=== PATIENT | female | born 1995 | race Caucasian/White ===

== ENCOUNTER 2016-11-13 16:13 | Emergency (ER) | payer OTHER ==
[~2016-11-13] VITALS: Ht 160 cm; Wt 74.8 kg
[~2016-11-13 16:13] MED LIST: AMOX500C3 PO
[2016-11-13 16:16] VITALS: TEMP 37.2; Ht 160 cm; Wt 74.8 kg
[2016-11-13 16:21] VITALS: O2SAT 99
[2016-11-13] MEDS ORDERED: SODIUM CHLORIDE 0.9% 1000ML 2,000 ML IV STA (16:35)
[2016-11-13 17:04] LABS: BASO % 0.1 %; BASO ABS # 0.01 K/uL (0-0.2); COMPLETE YES; EOS % 0.6 %; HEMATOCRIT 44.2 % (37-47); IG% 0.3 %; LYMPH % 9.2 %; LYMPH ABS # 1.48 K/uL (1.2-3.4); MEAN CELL VOLUME 92.5 fL (80-100); MEAN CORPUSCULAR HEMOGLOBIN 32.4 pg (25-34); MEAN CORPUSCULAR HGB CONC 35.1 g/dl (32-36); MEAN PLATELET VOLUME 9.8 fL (7.4-10.4); NEUT % 83.8 %; PLATELET COUNT 205 K/uL (130-400); RED BLOOD COUNT 4.78 M/uL (4.2-5.4); WHITE BLOOD COUNT 16.08 K/uL (4.8-10.8)
[2016-11-13 17:26] LABS: ALT/SGPT 19 U/L (12-78); AST/SGOT 11 U/L (15-37); BLOOD UREA NITROGEN 10 mg/dl (7-18); BUN/CREATININE RATIO 18.8 (10-20); CALCIUM 7.6 mg/dl (8.5-10.1); CARBON DIOXIDE 22 mmol/L (21-32); CHLORIDE 110 mmol/L (98-107); CREATININE 0.52 mg/dl (0.60-1.20); GLUCOSE 77 mg/dl (70-99); MAGNESIUM 1.7 mg/dl (1.8-2.4); POTASSIUM 3.5 mmol/L (3.5-5.1); SODIUM 142 mmol/L (136-145)
[2016-11-13 17:36] LABS: PREG INTERNAL NEGATIVE QC NEG CLEAR BACKGROUND; PREG INTERNAL POSITIVE QC POS CONTROL LINE
[2016-11-13 17:37] LABS: ALKALINE PHOSPHATASE 63 U/L (45-117)
[2016-11-13 18:36] LABS: URINE APPEARANCE CLOUDY (CLEAR); URINE BILIRUBIN NEG (NEG); URINE COLOR YELLOW; URINE EPITHELIAL CELL AUTO >30 /lpf (0-5); URINE NITRITE POS (NEG); URINE SPECIFIC GRAVITY 1.023 (1.000-1.030); UROBILINOGEN NEG (NEG)
[2016-11-13 18:45] LABS: MANUAL MICROSCOPIC REQUIRED? NO; REVIEW REQ? YES
[2016-11-13] MEDS ORDERED: CEFTRIAXONE SOD INJ 1 GM ADDVIAL IV STA (19:04)
[2016-11-13] MEDS ORDERED: SULF800T23 PO (19:36)
--- NOTE | 2016-11-13 19:37 | EMERGENCY ROOM VISIT NOTE ---
History Report prepared by Jose: Danielle Johnson Under the Supervision of: Dr. Georgi Lockwood M.D. First contact with patient: 16:15 Chief Complaint: SYNCOPE Stated Complaint: SYNCOPE History of Present Illness The patient is a 21 year old female who presents to the Emergency Room with complaints of a syncopal episode that occurred this afternoon. Per EMS, the patient donated plasma at [facility] this afternoon. Afterwards, she got in her car to drive home and smoked a cigarette. A few minutes after she finished her cigarette when she was driving, she became lightheaded. She asked her to drive at that time. While in the passenger seat, she became unresponsive, her arms contracted inward, and she was incontinent of urine. Upon EMS arrival, the patient was not responsive. When she came to, she complained of tingling in her fingers and toes. Her systolic blood pressure was between 80 and 100. The patient notes that she was feeling well prior to donating plasma and has never had any problems donating in the past. She has not eaten anything since about 0830 this morning. She has been feeling well over the past few days. Pt denies headache, fevers, chills, diaphoresis, visual changes, neck pain, chest pain, breathing difficulties, nausea, vomiting, abdominal pain, back pain, melena, hematochezia, weakness, lymphadenopathy, rash, or other complaints. Source of History: patient, EMS Onset: this afternoon Position: other (global) Quality: other (syncope) Timing: other (episode) Associated Symptoms: + LOC, + urinary symptoms (incontinence) Note: Other symptoms: tingling to fingers and toes Review of Systems See HPI for pertinent positives and negatives. A total of ten systems were reviewed and were otherwise negative. Past Medical & Surgical Medical Problems: (1) Back pain affecting (2) Cramping affecting , antepartum (3) Decreased movement during in third trimester, antepartum (4) Esophagitis Nos (5) Headache in , antepartum (6) Hx-Mental Disorder Nec (7) Hypopotassemia (8) Irregular contractions (9) with 35 completed weeks gestation (10) with 38 completed weeks gestation (11) with 39 completed weeks gestation (12) pain Family History FH: HTN (hypertension) FH: cancer FH: lung disease FHx: diabetes mellitus Social History Smoking Status: Current Every Day Smoker Drug Use: none Marital Status: single Occupation Status: employed Current/Historical Medications Scheduled Sulfa/Trimethoprim (Bactrim Ds 800MG/160MG), 1 TAB PO BID Allergies Coded Allergies: Oxycodone (Verified Allergy, Intermediate, GI UPSET, RASH, 11/13/16) Physical Exam Vital Signs Date Time Temp Pulse Resp B/P Pulse Ox O2 Delivery O2 Flow Rate FiO2 11/13/16 20:00 83 18 108/66 98 Room Air 11/13/16 17:52 88 18 110/64 11/13/16 17:05 90 11/13/16 16:21 99 Room Air 11/13/16 16:16 37.2 100 18 122/80 99 Room Air Physical Exam GENERAL: Awake, alert, well-appearing, in no distress HENT: Normocephalic, atraumatic. Oropharynx unremarkable. EYES: Normal conjunctiva. Sclera non-icteric. NECK: Supple. No nuchal rigidity. FROM. No JVD. RESPIRATORY: Clear to auscultation. CARDIAC: Regular rate, normal rhythm. Extremities warm and well perfused. Pulses equal. ABDOMEN: Soft, non-distended. No tenderness to palpation. No rebound or guarding. No masses. RECTAL: Deferred. MUSCULOSKELETAL: Chest examination reveals no tenderness. The back is symmetrical on inspection without obvious abnormality. There is no CVA tenderness to palpation. No joint edema. LOWER EXTREMITIES: Calves are equal size bilaterally and non-tender. No edema. No discoloration. NEURO: Normal sensorium. No sensory or motor deficits noted. SKIN: No rash or jaundice noted. Medical Decision & Procedures Laboratory Results 11/13/16 16:55 Red Blood Count 4.78, Mean Corpuscular Volume 92.5, Mean Corpuscular Hemoglobin 32.4, Mean Corpuscular Hemoglobin Concent 35.1, Mean Platelet Volume 9.8, Neutrophils (%) (Auto) 83.8, Lymphocytes (%) (Auto) 9.2, Monocytes (%) (Auto) 6.0, Eosinophils (%) (Auto) 0.6, Basophils (%) (Auto) 0.1, Neutrophils # (Auto) 13.49, Lymphocytes # (Auto) 1.48, Monocytes # (Auto) 0.96, Eosinophils # (Auto) 0.09, Basophils # (Auto) 0.01 11/13/16 16:55 Test 11/13/16 16:55 11/13/16 18:10 White Blood Count 16.08 K/uL (4.8-10.8) Red Blood Count 4.78 M/uL (4.2-5.4) Hemoglobin 15.5 g/dL (12.0-16.0) Hematocrit 44.2 % (37-47) Mean Corpuscular Volume 92.5 fL (80-100) Mean Corpuscular Hemoglobin 32.4 pg (25-34) Mean Corpuscular Hemoglobin Concent 35.1 g/dl (32-36) Platelet Count 205 K/uL (130-400) Mean Platelet Volume 9.8 fL (7.4-10.4) Neutrophils (%) (Auto) 83.8 % Lymphocytes (%) (Auto) 9.2 % Monocytes (%) (Auto) 6.0 % Eosinophils (%) (Auto) 0.6 % Basophils (%) (Auto) 0.1 % Neutrophils # (Auto) 13.49 K/uL (1.4-6.5) Lymphocytes # (Auto) 1.48 K/uL (1.2-3.4) Monocytes # (Auto) 0.96 K/uL (0.11-0.59) Eosinophils # (Auto) 0.09 K/uL (0-0.5) Basophils # (Auto) 0.01 K/uL (0-0.2) RDW Standard Deviation 42.8 fL (36.4-46.3) RDW Coefficient of Variation 12.7 % (11.5-14.5) Immature Granulocyte % (Auto) 0.3 % Immature Granulocyte # (Auto) 0.05 K/uL (0.00-0.02) Anion Gap 10.0 mmol/L (3-11) Est Creatinine Clear Calc Drug Dose 167.1 ml/min Estimated GFR () > 150.0 Estimated GFR (Non- 137.5 BUN/Creatinine Ratio 18.8 (10-20) Calcium Level 7.6 mg/dl (8.5-10.1) Magnesium Level 1.7 mg/dl (1.8-2.4) Total Bilirubin 0.6 mg/dl (0.2-1) Direct Bilirubin 0.1 mg/dl (0-0.2) Aspartate Amino Transf (AST/SGOT) 11 U/L (15-37) Alanine Aminotransferase (ALT/SGPT) 19 U/L (12-78) Alkaline Phosphatase 63 U/L (45-117) Total Protein 5.5 gm/dl (6.4-8.2) Albumin 3.3 gm/dl (3.4-5.0) Thyroid Stimulating Hormone (TSH) 1.050 uIu/ml (0.300-4.500) Human Chorionic Gonadotropin, Qual NEG (NEG) Urine Color YELLOW Urine Appearance CLOUDY (CLEAR) Urine pH 7.0 (4.5-7.5) Urine Specific [place] 1.023 (1.000-1.030) Urine Protein TRACE (NEG) Urine Glucose (UA) NEG (NEG) Urine Ketones 3+ (NEG) Urine Occult Blood NEG (NEG) Urine Nitrite POS (NEG) Urine Bilirubin NEG (NEG) Urine Urobilinogen NEG (NEG) Urine Leukocyte Esterase MODERATE (NEG) Urine WBC (Auto) >30 /hpf (0-5) Urine RBC (Auto) 10-30 /hpf (0-4) Urine Hyaline Casts (Auto) >30 /lpf (0-5) Urine Epithelial Cells (Auto) >30 /lpf (0-5) Urine Bacteria (Auto) 4+ (NEG) Laboratory results reviewed by me Medications Administered Medications (Trade) Dose Ordered Sig/[place] Route Start Time Stop Time Status Last Admin Dose Admin Sodium Chloride (Nss 1000ml) 2,000 ml @ 999 mls/hr Q2H1M STAT IV 11/13/16 16:35 11/13/16 18:35 DC 11/13/16 16:35 999 MLS/HR Ceftriaxone Sodium (Rocephin Inj) 1 gm NOW STAT IV 11/13/16 19:04 11/13/16 19:08 DC 11/13/16 19:14 1 GM ECG Indication: syncope Rate (beats per minute): 92 Rhythm: normal sinus Findings: no acute ischemic change, no ectopy ED Course 161: The patient was evaluated in room B3. A complete history and physical exam was performed. 1635: Ordered NSS 2000 ml @ 999 mls/hr IV. 181: I reassessed the patient. She was feeling better. 1904: I reevaluated the patient. Discussed results and discharge instructions: She verbalized understanding and agreement. The patient is ready for discharge. Ordered Rocephin Inj 1 gm IV. Medical Decision Triage Nursing notes reviewed and agree them. Additional history obtained from the tinter photograph. The patient's history was concerning for syncope. Differential diagnosis: Etiologies such as infection, hypoglycemia, electrolyte abnormalities, cardiac sources, intracerebral event, toxicologic, neurologic, as well as others were entertained. Physical examination: As above. Normal. ER treatment provided: IV hydration with normal saline On reassessment the patient felt normal. IV Rocephin Diagnostics interpretation by me: ECG: Normal sinus rhythm The labs revealed a mild leukocytosis. Chemistry panel is unremarkable. LFTs were unremarkable as was TSH. The patient's urinalysis was concerning for infection. Mild low calcium and magnesium. Imaging studies: Deferred The patient had a syncopal episode after donating plasma, not eating, and smoking afterwards. She felt the symptoms coming on and then had the episode. She also noted some foul-smelling urine and has a UTI. She was treated. She will be placed on Bactrim. She was counseled. If she worsens in any way she will come back.I gave my usual and customary discussion regarding this issue. By the evaluation outlined above emergent etiologies such as sepsis, hypoglycemia, electrolyte abnormalities, cardiac sources, intracerebral event, toxicologic, neurologic,as well as others were deemed relatively unlikely. The patient was informed about the findings as listed above. All questions were answered and she was pleased with the treatment. Return instructions were outlined and the patient was discharged in stable condition. Outpatient prescription management: Bactrim Referral: The patient was referred back to her primary care physician for follow-up next week for a recheck of the current condition. The chart was completed utilizing [employer] Speech voice recognition software. Grammatical errors, random word insertions, pronoun errors, and incomplete sentences are an occasional consequence of this system due to software limitations, ambient noise, and hardware issues. Any formal questions or concerns about the content, text, or information contained within the body of this dictation should be directly addressed to the physician for clarification. Impression Primary Impression: Syncope Additional Impression: UTI (urinary tract infection) Scribe Attestation The scribe's documentation has been prepared under my direction and personally reviewed by me in its entirety. I confirm that the note above accurately reflects all work, treatment, procedures, and medical decision making performed by me. Departure Information Dispostion Home / Self-Care Prescriptions Sulfa/Trimethoprim (Bactrim Ds 800MG/160MG) Tab 1 TAB PO BID, #14 TAB Prov: Georgi Lockwood MD 11/13/16 Referrals No Doctor, Assigned (PCP) Patient Instructions [facility] Additional Instructions SYNCOPE (PASSING OUT) INSTRUCTIONS: Diagnosis #1 syncope diagnosis #2 UTI Trimethoprim-Sulfamethoxazole(Bactrim DS): Take one pill twice daily for 7 days for your urine infection. All antibiotics can cause diarrhea. If this occurs and you feel worse or it does not resolve in 1-2 days follow up with your doctor or return to the Emergency Department as this could be signs of serious underlying problems. Any medication can cause an allergic reaction, stop the pills immediately and return to the ER for rash, hives, breathing difficulties, or swelling. Refrain from plasma donation for the next 2 months. Do not donate blood or plasma without having a full meal beforehand. Rest and drink plenty of fluids after donating plasma. Stop smoking. Ibuprofen(Motrin, Advil) may be used for fever or pain. Use 600mg every six hours as needed. Take with food. Avoid using more than 2400mg in a 24 hour period. Do not use 2400mg per day for more than three consecutive days without physician direction. Prolonged inappropriate use can lead to stomach upset or ulcers. (AND/OR) Acetaminophen(Tylenol) may be used for fever or pain. Use 1000mg every six hours as needed. Avoid using more than 4000mg in a 24 hour period. Rest and drink plenty of fluids as tolerated. Continue current medications. Return to the ER for passing out, chest pain, headache, persistent vomiting, fevers, abdominal pain, chest pains, difficulty breathing, black or bloody stools, worsening of your condition, or as needed. Follow up with your primary physician in 2-3 days for a recheck of your current condition Problem Qualifiers
[2016-11-13 20:00] VITALS: BP 108/66; PULSE 83; O2SAT 98
== END 2016-11-13 20:18 | disposition home or self-care (01) ==
LOC: EDBD 16:13 → C.EDB 16:15
DX: R55 Syncope and collapse (principal); N39.0 Urinary tract infection, site not specified; F17.210 Nicotine dependence, cigarettes, uncomplicated; Z86.59 Personal history of other mental and behavioral disorders; Z82.49 Family history of ischemic heart disease and other diseases of the circulatory system; Z83.3 Family history of diabetes mellitus

== ENCOUNTER 2019-02-04 07:28 | Inpatient (IN) ==
[2019-02-04] MEDS ORDERED: OXYTOCIN 30 UNITS/500 ML BAG IV PRN ×3 (07:35→16:13)
[2019-02-04 07:50] LABS: Hematocrit (blood only) 31.5 % (37-47); Hemoglobin 10.7 g/dL (12.0-16.0); Mean Corpuscular Volume 91.6 fL (80-100); Mean Platelet Volume 9.3 fL (7.4-10.4); Platelet Count 224 K/uL (130-400); RDW Coefficient of Variation 13.9 % (11.5-14.5); RDW Standard Deviation 45.8 fL (36.4-46.3); Red Blood Count 3.44 M/uL (4.2-5.4); White Blood Count 10.71 K/uL (4.8-10.8)
[2019-02-04] MEDS: LACTATED RINGER'S 1,000 ML IV PRN ×2 (08:59→13:25)
--- NOTE | 2019-02-04 12:09 | History & Physical Report ---
Date of Service February 04, 2019 Assessment & Plan (1) Encounter for induction of labor: IUP at 39 weeks with persistent decreased movement Begin pitocin induction of labor anticipate vaginal . History of Present Illness Primary Care Provider: Pipo Lion MD Patient is a 23 yo EDC 02/07/19 who presents at 39 weeks for IOL because of decreased movement. She hasn't felt movement for 3 days. NST BPP in the office were reassuring yesterday. Patient is requesting IOL because of the continued decrease movement. GBS (-) Allergies Allergy/AdvReac Type Severity Reaction Status Date / Time oxycodone AdvReac Intermediate GI UPSET, Verified 02/04/19 07:41 RASH Home Medications Home Medications Medication Instructions Recorded Confirmed Type PNV cmb#95-ferrous fumarate-FA 1 tab PO DAILY 07/20/18 02/04/19 History [] Patient History Medical History (Acute) Anxiety and depression LGSIL on Pap smear of cervix [place] teeth extracted Surgical History Hx of tonsillectomy Social History Preferred Language: Kazakh Beliefs That Will Affect Care: None marital status: Single Current Living Situation: Family current occupational status: employed Other Information That Helps Us Care for You: No Feels Safe at Home: Yes Safety Concerns: Feels Safe At This Time Smoking Status: Current every day smoker Tobacco Type: cigarettes Cigarettes Per Day: 5 Do You Dip or Chew Tobacco: No Tobacco Cessation Education Requested by Patient: No Hx Alcohol Use: No Hx Substance Use: No Review of Systems All systems reviewed & are unremarkable except as noted in HPI & below Physical Exam Constitutional: WD/WN, vitals as above Respiratory: normal respiratory effort, lungs clear to auscultation Cardiovascular: RRR, no murmur, no edema Gastrointestinal (Abdomen): normal bowel sounds, soft, nontender, no hepatosplenomegaly Genitourinary: OB Exam Abdomen: + vertex, + estimated weight (6-7 pounds) and + irregular contractions Manual OB Exam: + cervical dilation 3 cm, + cervical effacement 70% and + station -1 OB Exam Monitor Tracing: + external FHT monitor used, + external uterine monitor used, + category I and + normal FHT variability Results & Data Vital Signs (Past 12 Hours) Vital Signs Temp Pulse Resp BP 02/04/19 11:12 37.0 C 75 14 124/73 02/04/19 07:53 37.1 C 16 02/04/19 07:37 103 H 131/83
[2019-02-04] MEDS ORDERED: BUPIVACAINE 0.25% 30 ML VIAL ONE (12:56)
[2019-02-04] MEDS ORDERED: fentaNYL citrate 100 MCG/2 ML VIAL ONE (12:57)
[2019-02-04] MEDS ORDERED: ePHEDrine sulfate 50 MG/ML AMP ONE (12:57)
[2019-02-04] MEDS ORDERED: fentaNYL 2MCG/ML ROPIV 1.25MG/ML 100 ML BAG EPI ONE (12:57)
--- NOTE | 2019-02-04 13:26 | Anesthesiology Consultation ---
Date of Service February 04, 2019 Assessment & Plan Chart Review Chart Review: Patient NOT seen in Pre Admission Testing and Acceptable Risk for Labor Epidural Consults Requested none ASA ASA2 Proposed Anesthesia Anesthesia Type: Labor Epidural and CSE Risk / Benefits Reviewed With: PT / POA / Parent / Guardian, Accepts Plan and Informed Consent Obtained History Height/Weight Height: 5 ft 3 in Weight: 92.533 kg Allergies Allergy/AdvReac Type Severity Reaction Status Date / Time oxycodone AdvReac Intermediate GI UPSET, Verified 02/04/19 07:41 RASH Medications Home Medications Medication Instructions Recorded Confirmed Last Taken PNV cmb#95-ferrous fumarate-FA 1 tab PO DAILY 07/20/18 02/04/19 Unknown [] Active Medications Generic Name Dose Route Start Last Admin Trade Name Freq PRN Reason Stop Dose Admin Lactated Ringer's 1,000 mls @ 125 mls/hr 02/04/19 07:35 02/04/19 08:59 Lr IV 02/06/19 07:34 125 mls/hr .Q8H PRN Administration L&D Protocol Protocol Oxytocin 30 units in 500 mls @ 13 mls/hr 02/04/19 07:35 02/04/19 12:40 Pitocin IV 02/06/19 07:34 0.9 units/hr .Q24H PRN 15 mls/hr Labor Induction/Augmentation Titration Protocol 0.78 UNITS/HR NPO Date Last Intake of Fluids: 02/04/19 Time Last Intake of Fluids: 12:00 Date Last Intake of Solids: 02/04/19 Time Last Intake of Solids: 06:00 Past Medical History Medical History (Acute) Anxiety and depression LGSIL on Pap smear of cervix [place] teeth extracted Exercise / Class Metabolic Activity II 4-5 Yardwork/Stairs/Walk up hill Past Family History Family History Other Family history non-contributory Past Surgical History Surgical History Hx of tonsillectomy Past Anesthesia History No Hx of Anesthesia Complications and No Family Hx of Anesthesia Complications History of PONV No Hx of PONV Social History Smoking Status: Current every day smoker tobacco type: cigarettes Smoking cigarettes per day: 5 Do You Dip or Chew Tobacco: No Hx Alcohol Use: No Hx Substance Use: No Review of Systems no chest pain or sob Physical Exam Vital Signs Last Vital Signs Temp 37.0 C 02/04/19 13:05 Pulse 79 02/04/19 13:26 Resp 14 02/04/19 11:12 BP 131/76 02/04/19 13:26 Pulse Ox 100 02/04/19 13:23 ENMT Mouth: no TMJ abnormality Thyromental Distance: > or= 3.5 Finger Breadths Mallampati Class: II Neck normal visual inspection Respiratory normal respiratory effort Auscultation: lungs clear to auscultation bilaterally Cardiovascular Rate/Rhythm: regular rate and regular rhythm Musculoskeletal Spine: normal cervical ROM Neurologic moves all extremities Psychiatric Orientation: alert and oriented x 3 Testing Laboratory Results 02/04/19 07:40
[2019-02-04] MEDS ORDERED: NALOXONE HCL 1 MG in SODIUM CHLORIDE 0.9% 1000ML 1,000 ML IV PRN (13:43)
[2019-02-04] MEDS ORDERED: fentaNYL 2MCG/ML ROPIV 1.25MG/ML 100 ML BAG EPI PRN (13:43)
[2019-02-04] MEDS ORDERED: NALOXONE HCL 0.4 MG/1 ML VIAL/CARP IV PRN (13:43)
[2019-02-04] MEDS ORDERED: DiphenhydrAMINE HCL 50 MG/ML VIAL IV PRN (13:43)
[2019-02-04] MEDS ORDERED: NALBUPHINE HCL INJ 10 MG/ML AMP IV PRN (13:43)
[2019-02-04] MEDS ORDERED: ONDANSETRON INJ 2 MG/ML 2 ML VIAL IV PRN (13:43)
[2019-02-04] MEDS ORDERED: ePHEDrine sulfate 50 MG/ML AMP IV PRN (13:43)
[2019-02-04] MEDS ORDERED: BENZOCAINE 20% AER SPR 82.5 GM CAN EXT PRN (16:13)
[2019-02-04] MEDS ORDERED: SUPERCREAM 0.870% 15 GM JAR EXT PRN (16:13)
[2019-02-04] MEDS ORDERED: ACETAMINOPHEN 325 MG TAB PO PRN (16:13)
[2019-02-04] MEDS ORDERED: DIPHTHERIA/TETANUS/PERTUSSIS 0.5 ML SYR/VIAL IM ONE (16:13)
[2019-02-04] MEDS ORDERED: HYDROCORTISONE ACETATE 25 MG SUPP PR PRN (16:13)
[2019-02-04] MEDS ORDERED: OXYCODONE/ACETAMINOPHEN 5mg/325mg TAB PO PRN (16:13)
[2019-02-04] MEDS ORDERED: BISACODYL 10 MG SUPP PR PRN (16:13)
--- NOTE | 2019-02-04 18:18 | Anesthesia Procedure Note ---
Date of Service February 04, 2019 Anesthesia Post Epidural Note Vital Signs Vital Signs: Temp Pulse Resp BP Pulse Ox 37.1 C 81 18 125/58 L 97 02/04/19 17:05 02/04/19 18:08 02/04/19 17:35 02/04/19 18:08 02/04/19 16:03 Notes Mental Status: alert / awake / arousable and participated in evaluation Nausea / Vomiting: adequately controlled Pain: adequately controlled Airway Patency, RR, SpO2: stable & adequate BP & HR: stable & adequate Hydration State: stable & adequate Neuraxial Anesthesia: was administered and sensory block is resolving Anesthetic Complications: no major complications apparent and Pt Satisfied with anesthetic care Epidural: Removed without complications and With tip intact
[2019-02-04] MEDS: DOCUSATE SODIUM 100 MG CAP PO SCH (20:43)
[2019-02-04] MEDS: IBUPROFEN 600 MG TAB PO PRN (21:34)
--- NOTE | 2019-02-04 22:34 | Delivery Summary ---
DATE OF OPERATION: 02/04/2019 The patient is a 23-year-old G2, P1-0-1-1 white female, EDC of 02/07/2019, who presented at 39 weeks for induction of labor because of persistent decreased movement. She presented for Pitocin induction. She progressed to 4 cm dilated with rupture of membranes for clear fluid. She progressed to full dilation and pushed effectively over intact perineum for delivery of a viable female infant. There was a tight double nuchal cord which was clamped and cut prior to delivering the rest of the . Rest of the infant delivered easily and was placed on the mother's abdomen for further attention and drying. There was spontaneous crying and the infant was moving all 4 limbs. The placenta was then expressed intact with a 3-vessel cord. The perineum was intact, therefore no repair was done. Estimated blood loss was 250 mL. Mother and were doing well after delivery. I attest to the content of the Intraoperative Record and any orders documented therein. Any exception s are noted below.
[2019-02-05] MEDS: IBUPROFEN 600 MG TAB PO PRN ×4 (02:48→20:25)
[2019-02-05 06:30] LABS: Hematocrit (blood only) 28.5 % (37-47); Hemoglobin 9.6 g/dL (12.0-16.0); Mean Corpuscular Hgb Conc 33.7 g/dL (32-36); Mean Corpuscular Volume 92.2 fL (80-100); Mean Platelet Volume 9.3 fL (7.4-10.4); Platelet Count 187 K/uL (130-400); RDW Coefficient of Variation 13.8 % (11.5-14.5); RDW Standard Deviation 45.9 fL (36.4-46.3); Red Blood Count 3.09 M/uL (4.2-5.4); White Blood Count 10.88 K/uL (4.8-10.8)
--- NOTE | 2019-02-05 06:48 | Obstetrical Progress Note ---
Date of Service <Curtis Liu - Last Filed: 02/05/19 06:52> February 05, 2019 Assessment & Plan <Curtis Liu DO - Last Filed: 02/05/19 06:52> (1) (spontaneous vaginal delivery): -vital signs reviewed and WNL -last Hgb 10.7 -Blood type: B+, GBS-, Rubella Immune -pt doing well clinically -encourage ambulation, monitor and control pain with motrin tylenol, cont regular diet, monitor lochia -cont encourage bottle feeding -anticipate d/c tomorrow Subjective <Curtis Liu - Last Filed: 02/05/19 06:52> 23 y/o PPD1 found in bed this morning in NAD. Reports no acute overnight events. Pt states that she has no pain other than appropriate soreness. Tolerating PO intake without N/V. Able to ambulate without issue. She is bottle feeding without issue. No issues with voiding, had normal BM. No other acute concerns or complaints. Review of Systems All systems reviewed & are unremarkable except as noted in HPI & below Physical Exam <Curtis Liu - Last Filed: 02/05/19 06:52> Constitutional WD/WN, vitals as above Respiratory normal respiratory effort, lungs clear to auscultation Cardiovascular RRR, no murmur, no edema Gastrointestinal (Abdomen) mild abd tenderness Fundus one below U, correlate with attending findings Skin no rashes, warm and dry Psychiatric A+Ox3, euthymic affect Lymphatic no LE swelling, no calf tenderness Results & Data <Curtis Liu - Last Filed: 02/05/19 06:52> Vital Signs (Past 12 Hours) Vital Signs Temp Pulse Resp BP 02/05/19 03:45 36.3 C L 85 18 117/77 02/05/19 00:00 36.9 C 97 H 18 106/72 Laboratory Results Laboratory Results - last 24 hr 02/04/19 02/05/19 07:40 06: WBC 10.71 10.88 H RBC 3.44 L 3.09 L Hgb 10.7 L 9.6 L Hct 31.5 L 28.5 L MCV 91.6 92.2 MCH 31.1 31.1 MCHC 34.0 33.7 RDW Std Deviation 45.8 45.9 RDW Coeff of Vita 13.9 13.8 Plt Count 224 187 MPV 9.3 9.3 Medications Administered Current Inpatient Medications Acetaminophen (Tylenol) 650 mg PO Q6H PRN PRN Reason: Pain/CALDERON/Fever Stop: 03/06/19 16:12 Benzocaine (Dermoplast Pain Relieving Dickson) 1 appln EXT PRN PRN PRN Reason: Perineal Discomfort Stop: 03/06/19 16:12 Bisacodyl (Dulcolax) 5 mg PO 1999 [facility] Stop: 02/05/19 20:01 Bisacodyl (Dulcolax) 10 mg AL DAILY PRN PRN Reason: No BM on 2nd post- day Stop: 03/06/19 16:12 Cocaine HCl (Supercream 0.870%) 1 gm EXT BID PRN PRN Reason: Hemorrhoidal Inflammation Stop: 02/18/19 16:12 Docusate Sodium (Colace) 100 mg PO DAILY@, [facility] Stop: 03/06/19 20:59 Last Admin: 02/04/19 20:43 Dose: 100 mg Documented by: Hydrocortisone (Anusol Hc) 25 mg AL BID PRN PRN Reason: Hemorrhoidal Inflammation Stop: 03/06/19 16:12 Oxytocin (Pitocin) 30 units in 500 mls @ 333.333 mls/hr IV .Q1H30M PRN; Protocol PRN Reason: Bleeding Control Stop: 03/06/19 16:12 Last Titration: 02/04/19 17:25 Dose: Infused Documented by: Ibuprofen (Motrin) 600 mg PO Q4H PRN PRN Reason: Pain/CALDERON/Cramping/Fever Stop: 03/06/19 16:12 Last Admin: 02/05/19 02:48 Dose: 600 mg Documented by: Oxycodone/Acetaminophen (Percocet 5mg/325mg) 1 tab PO Q4H PRN PRN Reason: Pain not relieved by... Stop: 02/18/19 16:12 Prenat Multivit/[place]/Iron/Folic Ac ( Vitamin) 1 tab PO DAILY@08 [facility] Stop: 03/07/19 07:59 <Lacey Vogt MD, FACOG - Last Filed: 02/05/19 07:57> Co-Signing Physician Notes Resident Physician Supervision Note: I interviewed and examined the patient. Discussed with Dr. Guillermo Liu and agree with findings and plan as documented in the note. Any exceptions or clarifications are listed here: [None] Documented By: Lacey Vogt MD, FACOG Resident Activity Tracking <Curtis Liu DO - Last Filed: 02/05/19 06:52> Resident Involvement: Resident Care Provided Care Provided: OB Delivery
[2019-02-05] MEDS: PRENATAL VITAMIN 1 TAB PO SCH (08:06)
[2019-02-05] MEDS: DOCUSATE SODIUM 100 MG CAP PO SCH ×2 (08:06→20:25)
[2019-02-05] MEDS ORDERED: BISACODYL 5 MG TABEC PO SCH (20:00)
--- NOTE | 2019-02-06 07:19 | Obstetrical Progress Note ---
Date of Service <Curtis Liu DO - Last Filed: 02/06/19 07:18> February 06, 2019 Assessment & Plan <Curtis Liu DO - Last Filed: 02/06/19 07:18> (1) (spontaneous vaginal delivery): -vital signs reviewed and WNL -last Hgb 10.7 -Blood type: B+, GBS-, Rubella Immune -pt doing well clinically -encourage ambulation, monitor and control pain with motrin tylenol, cont regular diet, monitor lochia -cont encourage bottle feeding -plan for d/c today Subjective <Curtis Liu - Last Filed: 02/06/19 07:18> 23 y/o PPD2 found in bed this morning in NAD. Reports no acute overnight events. Pt states that she has no pain other than appropriate soreness. Tolerating PO intake without N/V. Able to ambulate without issue. She is bottle feeding without issue. No issues with voiding, had normal BM. No other acute concerns or complaints. Pt ok with plan for d/c today. Review of Systems All systems reviewed & are unremarkable except as noted in HPI & below Physical Exam <Curtis Liu - Last Filed: 02/06/19 07:18> Constitutional WD/WN, vitals as above Respiratory normal respiratory effort, lungs clear to auscultation Cardiovascular RRR, no murmur, no edema Gastrointestinal (Abdomen) mild abd tenderness Skin no rashes, warm and dry Psychiatric A+Ox3, euthymic affect Lymphatic no LE swelling, no calf tenderness Results & Data <Curtis JoanaKathie Liu, - Last Filed: 02/06/19 07:18> Vital Signs (Past 12 Hours) Vital Signs Temp Pulse Resp BP Pulse Ox 02/06/19 00:00 37 C 81 16 110/70 98 Medications Administered Current Inpatient Medications Acetaminophen (Tylenol) 650 mg PO Q6H PRN PRN Reason: Pain/CALDERON/Fever Stop: 03/06/19 16:12 Benzocaine (Dermoplast Pain Relieving [place]) 1 appln EXT PRN PRN PRN Reason: Perineal Discomfort Stop: 03/06/19 16:12 Bisacodyl (Dulcolax) 10 mg NM DAILY PRN PRN Reason: No BM on 2nd post- day Stop: 03/06/19 16:12 Cocaine HCl (Supercream 0.870%) 1 gm EXT BID PRN PRN Reason: Hemorrhoidal Inflammation Stop: 02/18/19 16:12 Docusate Sodium (Colace) 100 mg PO DAILY@08,21 [facility] Stop: 03/06/19 20:59 Last Admin: 02/05/19 20:25 Dose: 100 mg Documented by: Hydrocortisone (Anusol Hc) 25 mg NM BID PRN PRN Reason: Hemorrhoidal Inflammation Stop: 03/06/19 16:12 Oxytocin (Pitocin) 30 units in 500 mls @ 333.333 mls/hr IV .Q1H30M PRN; Protocol PRN Reason: Bleeding Control Stop: 03/06/19 16:12 Last Titration: 02/04/19 17:25 Dose: Infused Documented by: Ibuprofen (Motrin) 600 mg PO Q4H PRN PRN Reason: Pain/CALDERON/Cramping/Fever Stop: 03/06/19 16:12 Last Admin: 02/05/19 20:25 Dose: 600 mg Documented by: Oxycodone/Acetaminophen (Percocet 5mg/325mg) 1 tab PO Q4H PRN PRN Reason: Pain not relieved by... Stop: 02/18/19 16:12 Prenat Multivit/Colt/Iron/Folic Ac ( Vitamin) 1 tab PO DAILY@08 [facility] Stop: 03/07/19 07:59 Last Admin: 02/05/19 08:06 Dose: 1 tab Documented by: <Jaquan Correa MD - Last Filed: 02/06/19 08:14> Co-Signing Physician Notes Patient seen and evaluated and agree with the above findings and plan. Resident Activity Tracking <Curtis Liu DO - Last Filed: 02/06/19 07:18> Resident Involvement: Resident Care Provided Care Provided: OB Delivery
[2019-02-06] MEDS: PRENATAL VITAMIN 1 TAB PO SCH (07:47)
[2019-02-06] MEDS: DOCUSATE SODIUM 100 MG CAP PO SCH (07:47)
[2019-02-06 08:01] LABS: Hematocrit (blood only) 30.8 % (37-47); Hemoglobin 10.4 g/dL (12.0-16.0)
[2019-02-06] MEDS: IBUPROFEN 600 MG TAB PO PRN (08:30)
== END 2019-02-06 09:51 | disposition home or self-care (01) | DRG 807 ==
LOC: 4S1 07:28 → 4S2 18:49